=== PATIENT | male | born 1955 | race Caucasian/White ===

== ENCOUNTER 2017-10-10 19:44 | Emergency (ER) | payer MEDICARE, MEDICAID ==
--- NOTE | 2017-10-10 20:37 | Emergency Department Record ---
History of Present Illness - General Chief Complaint: Shortness of breath Stated Complaint: MICHAEL Time Seen by Provider: 10/10/17 20:27 Source: Patient Mode of Arrival: Ambulatory Limitations: No limitations - History of Present Illness Initial Comments: 61 yo male presents with shortness of breath that has been progressive over the last few weeks. He does state he has had a cough on an off since May. The last two weeks the shortness of breath with normal activity has increased. He has developed occasional chest pain with exertion. No fevers. The cough has been dry and non productive. He has noted some swelling of both legs. 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 No history of CAD, [place], PE, DVT, COPD. He is a non smoker. 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 He receives infusions twice a week. No recent episodes of bleeding. No occupational health physiotherapist. MD Complaint: Shortness of breath -: Week(s) (2) Severity: Moderate Consistency: Constant Improves With: Rest Worsens With: Exertion, Movement Context: Other (grandual onset over a few week period) Associated Symptoms: Chest pain, Cough, Edema Treatments Prior to Arrival: None - Related Data Home Medications Medication Instructions Recorded Confirmed Last Taken Amlodipine Besylate [Norvasc] 10 mg PO DAILY 10/10/17 10/10/17 Unknown Celecoxib [Celebrex] 100 mg PO DAILY 10/10/17 10/10/17 Unknown Esomeprazole Magnesium [Nexium] 20 mg PO DAILY 10/10/17 10/10/17 Unknown Fentanyl [Duragesic] 25 mcg TD Q72H 10/10/17 10/10/17 Unknown Fentanyl [Duragesic] 100 mcg TD Q72H 10/10/17 10/10/17 Unknown Insulin Aspart [Novolog] 5 units SC ASDIR 10/10/17 10/10/17 Unknown Insulin Glargine,Hum.rec.anlog 78 unit SQ DAILY 10/10/17 10/10/17 Unknown [Lantus] Morphine Sulfate 30 mg PO Q4H PRN 10/10/17 10/10/17 Unknown Morphine Sulfate [Morphine Sulfate 15 mg PO Q12H 10/10/17 10/10/17 Unknown ER] Allergies Allergy/AdvReac Type Severity Reaction Status Date / Time aspirin AdvReac hemophilia Verified 10/10/17 20:15 Review of Systems Constitutional: Denies: Chills, Fever, Malaise, Weakness Eyes: Denies: Eye discharge ENT: Denies: Congestion, Throat pain Respiratory: Reports: Cough, Dyspnea. Denies: Hemoptysis, Stridor, Wheezes Cardiovascular: Reports: Chest pain (occasional with exertion) Endocrine: Denies: Fatigue, Polydipsia, Polyuria Gastrointestinal: Denies: Abdominal pain, Diarrhea, Nausea, Vomiting Genitourinary: Denies: Dysuria, Frequency, Hematuria Musculoskeletal: Denies: Arthralgia, Back pain, Neck pain Skin: Denies: Bruising, Change in color, Rash Neurological: Denies: Confusion, Headache, Numbness, Vertigo, Weakness Psychiatric: Denies: Anxiety Hematological/Lymphatic: Denies: Blood Clots, Easy bleeding, Easy bruising, Swollen glands Physical Exam - General General Appearance: Alert, Oriented x3, Cooperative, No acute distress Limitations: No limitations - Head Head exam: Normal inspection - Eye Eye exam: Normal appearance, PERRL. negative: Conjunctival injection, Scleral icterus - ENT ENT exam: Normal exam, Mucous membranes moist Ear exam: Normal external inspection Nasal Exam: Normal inspection Mouth exam: Normal external inspection Teeth exam: Normal inspection - Neck Neck exam: Normal inspection, Full ROM. negative: Tenderness - Respiratory Respiratory exam: Decreased breath sounds, Rales, Rhonchi, Other (mild conversational dyspnea). negative: Normal lung sounds bilaterally, Respiratory distress - Cardiovascular Cardiovascular Exam: Normal rhythm, Normal heart sounds, Tachycardia Peripheral Pulses: 2+: Radial (R), Radial (L) - GI/Abdominal GI/Abdominal exam: Soft. negative: Tenderness - Rectal Rectal exam: Deferred - exam: Deferred - Extremities Extremities exam: Normal capillary refill, Pedal edema. negative: Normal inspection, Calf tenderness, Joint swelling, Tenderness - Back Back exam: Reports: Normal inspection, Full ROM. Denies: Muscle spasm, Rash noted, Tenderness - Neurological Neurological exam: Alert, Normal gait, Oriented X3 - Psychiatric Psychiatric exam: Normal affect, Normal mood. negative: Agitated, Anxious - Skin Skin exam: Dry, Intact, Normal color, Warm Course Vital Signs 10/10/17 20:15 Temperature 98.8 F Pulse Rate [ 120 H Pulse Ox Probe] Respiratory 28 H Rate Blood Pressure 180/119 [Right Arm] Pulse Ox 96 - Reevaluation(s) Reevaluation #1: EKG Sinus tachycardia, rate is 122, intervals normal, axis normal, poor R wave progression, NS ST changes. 10/10/17 20:27 No prior EKG on EMR No prior ED visit on EMR 10/10/17 20:41 10/10/17 21:21 The labs to this point were reviewed CBC with Hgb of 11.9 CMP CR 1.0 with GFR of > 60 Troponin indeterminate at 0.015 The BNP is 26,958 D-Dimer 3.3 CTA ordered. 10/10/17 21:50 The CXR and CTA were reviewed The findings are consistent with CHF, cardiomegaly and effusions small bilaterally No PE or aneurysm/dissection. 10/10/17 21:57 The patient prefers [facility] for admission. 10/10/17 21:58 [facility] at [facility] was called for transfer. 10/10/17 22:12 Dr Voice accepts the patient for transfer at [facility] for further work up The patient was given the lasix and is on nitro drip for preload reduction. The patient HR is down to about 100 with 100% saturations on 2 L NC. 10/10/17 23:40 The patient is doing much better Nitro at 20mcg Urine output 275ml 10/10/17 23:51 Additional lasix ordered Will continue to titrate nitro to BP Awaiting bed placement at [facility] 10/10/17 23:52 Medical Decision Making - Lab Data Result diagrams: 10/10/17 20:30 10/10/17 20:30 Disposition Disposition: Transfer Clinical Impression: Congestive heart failure Qualifiers: Heart failure type: unspecified Heart failure chronicity: acute Qualified Code( s): I50.9 - Heart failure, unspecified Disposition: Acute Care Hospital Transfer Transfer To: [facility] Reason For Transfer: New onset CHF Accepting Physician: Voice Time Discussed w/Accepting Physician: 22:13 Condition: (2) Stable Forms: Patient Portal Access Time of Disposition: 22:13 Quality - Quality Measures Quality Measures: N/A - Blood Pressure Screening Does Patient Have Any of the Following: Active Dx of HTN Blood Pressure Classification: Hypertensive Reading Systolic Measurement: 171 Diastolic Measurement: 157 Screening for High Blood Pressure: Patient Exclusion, Hx of HTN [[id number]]
[2017-10-10 20:49] LABS: BASO % 0.2 % (0-6); EOS % 0.6 % (0-6); GRAN % 80.3 % (47-80); HEMATOCRIT 39.1 % (42.0-52.0); HEMOGLOBIN 11.9 gm/dl (14.0-18.0); LYMPH % 9.1 % (16-45); MEAN CELL VOLUME 87.7 fl (81-97); MEAN CORPUSCULAR HEMOGLOBIN 26.6 pg (27-33); MEAN CORPUSCULAR HGB CONC 30.4 g/dl (32-36); MEAN PLATELET VOLUME 11.2 fl (7.4-10.4); MONO % 9.8 % (0-9); PLATELET COUNT 375 K/uL (130-400); RED BLOOD COUNT 4.46 M/uL (4.40-5.70); RED CELL DISTRIBUTION WIDTH 17.5 % (11.5-14.5); WHITE BLOOD COUNT W/O DIFF 9.7 K/uL (4.2-12.2)
[2017-10-10 21:01] LABS: BLOOD UREA NITROGEN 16 mg/dL (8-23); EST GLOMERULAR FILTRATION RATE > 60 mL/min
[2017-10-10 21:02] LABS: INR 1.1; PARTIAL THROMBOPLASTIN TIME 50.3 SECONDS (24.5-39.1); PROTHROMBIN TIME (PATIENT) 11.5 SECONDS (9.5-12.1); TOTAL PROTEIN 8.2 g/dL (6.6-8.7)
[2017-10-10 21:04] LABS: GLUCOSE,RANDOM 191 mg/dL (74-109)
[2017-10-10 21:06] LABS: ALT/SGPT 49 U/L (<41); AST/SGOT 39 U/L (10.0-50.0)
[2017-10-10 21:07] LABS: ALB/GLOB RATIO 0.6 (1.1-1.8); ALKALINE PHOSPHATASE 105 U/L (40-129)
[2017-10-10] MEDS ORDERED: ASPIRIN 81 MG CHEWABLE TABLET PO ONE (21:20)
[2017-10-10] MEDS ORDERED: FUROSEMIDE IV 20MG/2ML VIAL IVP ONE ×2 (21:20→23:41)
[2017-10-10] MEDS ORDERED: NITROGLYCERIN/D5W 50 MG/250 ML ML IV SCH (21:30)
[2017-10-11] MEDS ORDERED: MORPHINE SULFATE 5 MG/ML PFS IVP ONE (00:11)
--- NOTE | 2017-10-11 10:26 | CT ANGIOGRAM REPORT ---
EXAM: CTA OF THE CHEST FOR PE WITH POST PROCESSING HISTORY: SHORTNESS OF BREATH, TACHYCARDIA, ELEVATED D-DIMER, POSSIBLE PE. TECHNIQUE: CTA of the chest was performed following the intravenous administration of 95 ml of Omnipaque 350 as the IV contrast. Post processing on an independent workstation was performed with multiple 3D MIP series obtained. Comparison: No prior chest CT. Comparison is made with the chest x-ray performed this evening as well on 10/10/17. FINDINGS: No definite PE identified. No thoracic aortic aneurysm or dissection is seen. There is prominent coronary artery calcification present. Cardiomegaly is seen. Small bilateral pleural effusions are present. There is some hazy ground glass infiltrate and findings suggest CHF/pulmonary edema. There are multiple ground glass somewhat nodular densities as well which may just be small areas of edema although are nonspecific. No pneumothorax evident. There is a slightly prominent upper right paratracheal node about 1 cm in maximum short axis. An enlarged precarinal node measuring about 1.6 x 1.8 cm in size. Slightly prominent subcarinal node as well about 1.5 cm in maximum short axis. These are nonspecific although may be reactive in nature. Hypertrophic spurring in the spine. IMPRESSION: 1. NO DEFINITE PE IDENTIFIED. 2. CARDIOMEGALY WITH BILATERAL PLEURAL EFFUSIONS AND SOME HAZY GROUND GLASS DENSITY WELL SOME MORE FOCAL GROUND GLASS OPACITIES. FINDINGS MAY REPRESENT CHF/PULMONARY EDEMA ALTHOUGH THE FINDINGS ARE NONSPECIFIC. SHORT TERM FOLLOW-UP CHEST X-RAY IS SUGGESTED TO REASSESS. 3. PROMINENT CORONARY ARTERY CALCIFICATION. 4. SOME MILD MEDIASTINAL ADENOPATHY IS NONSPECIFIC ALTHOUGH MAY BE REACTIVE. JOB [facility]BER: [id number] [facility]
--- NOTE | 2017-10-11 10:55 | RADIOLOGY REPORT ---
EXAM: CHEST, TWO VIEWS HISTORY: CHEST PRESSURE, DIFFICULTY IN BREATHING, SHORTNESS OF BREATH, POSSIBLE PE. TECHNIQUE: PA and lateral views of the chest were obtained. Comparison: None. FINDINGS: Cardiomegaly is present. There is diffuse nodular interstitial infiltrate present. This could be acute or chronic. Consequently comparison with old films or short term follow-up is suggested. Small bilateral pleural effusions are likely present. Mild thoracic curve to the right. No pneumothorax evident. IMPRESSION: 1. CARDIOMEGALY. 2. NODULAR INTERSTITIAL INFILTRATE FAIRLY DIFFUSELY. THERE ARE PROBABLY SMALL BILATERAL EFFUSIONS WELL. 3. RECOMMEND COMPARISON WITH OLD FILMS OR SHORT TERM FOLLOW-UP. [facility]: [id number] [facility]
== END 2017-10-11 00:27 | disposition short-term general hospital (02) ==
LOC: ER 19:44
DX: I50.9 Heart failure, unspecified (principal); I10 Essential (primary) hypertension; R06.02 Shortness of breath; R07.89 Other chest pain; R79.89 Other specified abnormal findings of blood chemistry; R05 Cough; D66 Hereditary factor VIII deficiency; E11.9 Type 2 diabetes mellitus without complications; M79.662 Pain in left lower leg; M79.661 Pain in right lower leg; Z79.4 Long term (current) use of insulin
CPT/HCPCS: 99285 ×2; 96376; 96374; 96375; 85025; 85730; 85610; 80053; 84484; 85379; 83880; 71046; 71275; 93005; 93010; Q9967; J2270; J1940